=== PATIENT | female | born 1965 ===

== ENCOUNTER 2017-10-13 23:21 | Emergency (ER) | payer OTHER ==
[2017-10-13 23:27] VITALS: O2SAT 99
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
[2017-10-14 03:57] VITALS: BP 146/87; PULSE 60; RESP 18; TEMP 97.8
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
== END 2017-10-14 04:00 | disposition home or self-care (01) ==
LOC: H.ER 23:21
DX: S20.212A Contusion of left front wall of thorax, initial encounter (principal); V43.62XA Car passenger injured in collision with other type car in traffic accident, initial encounter; Y92.410 Unspecified street and highway as the place of occurrence of the external cause; J45.909 Unspecified asthma, uncomplicated